=== PATIENT | male | born 1970 ===

== ENCOUNTER 2020-07-17 16:50 | Inpatient (IN) | payer MEDICAID, SELFPAY ==
[2020-07-17 16:51] VITALS: BMI 24.4
[2020-07-17 16:54] VITALS: BP 131/75; PULSE 81; RESP 20; TEMP 36.9; O2SAT 98
[2020-07-17 20:11] VITALS: BP 109/69; PULSE 89; RESP 16; TEMP 36.9; O2SAT 96
[2020-07-17] MEDS: trazodone 50 mg Tablet PO (21:16)
[2020-07-17] MEDS: hyDROXYzine 25 mg Capsule 50 MG PO (21:16)
[2020-07-18 06:00] VITALS: BP 136/87; PULSE 65; RESP 15; TEMP 36.8; O2SAT 96
[2020-07-18 14:00] VITALS: BP 131/72; PULSE 71; RESP 18; TEMP 36.4; O2SAT 95
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
--- NOTE | 2020-07-18 20:29 | PC.NURSE ---
Lungs with wheezing in bases.
[2020-07-18] MEDS: trazodone 50 mg Tablet PO (20:30)
[2020-07-18] MEDS: hyDROXYzine 25 mg Capsule 50 MG PO (20:30)
[2020-07-18] MEDS: nicotine 2 mg Gum BUCCAL (20:30)
[2020-07-18 21:15] VITALS: BP 135/83; PULSE 97; RESP 14; TEMP 36.7; O2SAT 96
[2020-07-19 06:00] VITALS: BP 122/71; PULSE 100; RESP 15; TEMP 36.4; O2SAT 95
[2020-07-19] MEDS: meloxicam 7.5 mg tablet PO (08:34)
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
[2020-07-19 14:00] VITALS: BP 134/84; PULSE 68; RESP 18; TEMP 36.6; O2SAT 98
[2020-07-19 20:04] VITALS: PULSE 82; RESP 18; O2SAT 98
[2020-07-19] MEDS: albuterol 8 gm MDI 2 PUFF INHALATION (20:04)
[2020-07-19 20:07] VITALS: PULSE 84; RESP 18; O2SAT 98
[2020-07-19 20:35] VITALS: BP 138/92; PULSE 79; RESP 15; TEMP 36.5; O2SAT 92
[2020-07-20] MEDS: mirtazapine 15 mg Tablet PO (01:57)
[2020-07-20 06:00] VITALS: BP 128/83; PULSE 68; RESP 17; TEMP 36.6; O2SAT 97
[2020-07-20] MEDS: meloxicam 7.5 mg tablet PO (08:42)
[2020-07-20] MEDS: albuterol 8 gm MDI 2 PUFF INHALATION (09:44)
[2020-07-20 09:47] VITALS: PULSE 98; RESP 18; O2SAT 98
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
[2020-07-20 11:38] VITALS: PULSE 98; RESP 18; O2SAT 98
[2020-07-20 11:40] VITALS: PULSE 98; RESP 18; O2SAT 98
== END 2020-07-20 14:08 | disposition home or self-care (01) | DRG 897 ==
PROVIDERS: Admitting Provider Psychiatry & Neurology Psychiatry; Visit Provider Psychiatry & Neurology Psychiatry
DX: F15.229 Other stimulant dependence with intoxication, unspecified (principal); R45.851 Suicidal ideations; Z76.5 Malingerer [conscious simulation]; Z63.4 Disappearance and death of family member; F10.20 Alcohol dependence, uncomplicated; J44.9 Chronic obstructive pulmonary disease, unspecified; F43.12 Post-traumatic stress disorder, chronic; Z86.14 Personal history of Methicillin resistant Staphylococcus aureus infection; I25.2 Old myocardial infarction; F17.210 Nicotine dependence, cigarettes, uncomplicated
CPT/HCPCS: 12345; 94640; J3535